=== PATIENT | female | born 1980 | race Caucasian/White ===

== ENCOUNTER 2017-01-01 16:09 | Emergency (ER) | payer BC ==
[~2017-01-01] VITALS: Ht 172.7 cm; Wt 89.8 kg
--- NOTE | 2017-01-01 16:29 | PHYS DOC ---
Past Medical History Past Medical History: Diabetes-Type II Alcohol Use: None Drug Use: None Adult General Chief Complaint Chief Complaint: anxiety HPI HPI Patient is a 36 year old female who presents with while at work sudden onset moderate severity of crying, hyperventilation, feeling short of breath, near syncope, dizziness. Denies chest pain. No fever. Denies prior psychiatric history. Reports being under stress that she is engaged. Review of Systems Review of Systems Constitutional: Denies fever or chills [] Eyes: Denies change in visual acuity, redness, or eye pain [] HENT: Denies nasal congestion or sore throat [] Respiratory: Denies cough or shortness of breath [] Cardiovascular: No additional information not addressed in HPI [] GI: Denies abdominal pain, nausea, vomiting, bloody stools or diarrhea [] : Denies dysuria or hematuria [] Musculoskeletal: Denies back pain or joint pain [] Integument: Denies rash or skin lesions [] Neurologic: Denies headache, focal weakness or sensory changes [] Endocrine: Denies polyuria or polydipsia [] Current Medications Current Medications Current Medications Medications (Trade) Dose Ordered Sig/Gillian Start Time Stop Time Status Last Admin Dose Admin Lorazepam (Ativan) 1 mg 1X ONCE 01/01/17 16:30 01/01/17 16:31 DC 01/01/17 17:01 1 MG Sodium Chloride 1,000 ml @ 1,000 mls/hr 1X ONCE 01/01/17 16:30 01/01/17 17:29 DC 01/01/17 17:01 1,000 MLS/HR Allergies Allergies Allergies Coded Allergies Type Severity Reaction Last Updated Verified No Known Drug Allergies 01/01/17 No Physical Exam Physical Exam Constitutional: Well developed, well nourished, moderate acute distress, non- toxic appearance. [] HENT: Normocephalic, atraumatic, bilateral external ears normal, oropharynx moist, no oral exudates, nose normal. [] Eyes: PERRLA, EOMI, conjunctiva normal, no discharge. [] Neck: Normal range of motion, no tenderness, supple, no stridor. [] Cardiovascular:Heart rate regular rhythm, no murmur [] Lungs & Thorax: Bilateral breath sounds clear to auscultation [] Abdomen: Bowel sounds normal, soft, no tenderness, no masses, no pulsatile masses. [] Skin: Warm, dry, no erythema, no rash. [] Back: No tenderness, no CVA tenderness. [] Extremities: No tenderness, no cyanosis, no clubbing, ROM intact, no edema. [] Neurologic: Alert and oriented X 3, normal motor function, normal sensory function, no focal deficits noted. [] Psychologic: Affect normal, judgement normal, emotionally labile crying hysterically hyperventilating. Denies SI or HI. Denies hallucinations.[] Current Patient Data Vital Signs Vital Signs Date Time Temp Pulse Resp B/P (MAP) Pulse Ox O2 Delivery O2 Flow Rate FiO2 01/01/17 19:13 102 18 115/75 (88) 99 Room Air 01/01/17 16:09 98.0 98.0 Lab Values Laboratory Tests Test 01/01/17 16:20 01/01/17 16:47 D-Dimer (Sarah) < 0.27 ug/mlFEU POC Hemoglobin 14.3 g/dL (12-15) POC Hematocrit 42 % (36-40) H POC Sodium 136 mmol/L (135-145) POC Potassium 4.4 mmol/L (3.5-5.0) POC Chloride 103 mmol/L (98-110) POC Total CO2 21 mmol/L (23-32) L Anion Gap 18 mmol/L (6-14) H POC Blood Urea Nitrogen 16 mg/dL (8-26) POC Creatinine 0.7 mg/dL (0.5-1.4) Glucose Level 217 mg/dL (70-99) H POC Ionized Calcium ([place]) 1.07 mmol/L (1.13-1.32) L Laboratory Tests 01/01/17 16:47 EKG EKG EKG sinus tachycardia rate of 113 no STEMI QTC normal interpreted by me[] Radiology/Procedures Radiology/Procedures Chest x-ray negative per radiology report and my review[] Course & Med Decision Making Course & Med Decision Making Pertinent Labs and Imaging studies reviewed. (See chart for details) 1900 reexam patient is sleeping resting comfortably with a resting pulse rate in the 90s. D-dimer negative and EKG chest x-ray unremarkable. Do not suspect pulmonary embolism at this time. Most likely stress related as she says she is getting soon causing her a lot of anxiety.[] Dragon Disclaimer Dragon Disclaimer This electronic medical record was generated, in whole or in part, using a voice recognition dictation system. Departure Departure Impression: Primary Impression: Panic attack as reaction to stress Additional Impression: Hyperventilation syndrome Disposition: 01 HOME, SELF-CARE Condition: IMPROVED Patient Instructions: Anxiety and Panic Attacks, [id number] Problem Qualifiers LUDA CHRISTINE MD Jan 01, 2017 16:29
[2017-01-01] MEDS ORDERED: IV NORMAL SALINE 1000ML BAG 1,000 ML IV ONE (16:30)
[2017-01-01 16:51] LABS: POTASSIUM ISTAT 4.4 mmol/L (3.5-5.0)
--- NOTE | 2017-01-01 17:16 | EKG ---
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
[2017-01-01 19:13] VITALS: BP 115/75
--- NOTE | 2017-01-02 07:30 | RAD ---
Portable chest, 01/01/2017: History: Shortness of breath The heart size and pulmonary vascularity are normal. The lungs are clear. There is no evidence of pleural fluid. IMPRESSION: No acute cardiopulmonary abnormality is detected.
== END 2017-01-01 19:28 | disposition home or self-care (01) ==
LOC: ER 16:09
DX: F45.8 Other somatoform disorders (principal); F41.0 Panic disorder [episodic paroxysmal anxiety]; F43.0 Acute stress reaction; E11.9 Type 2 diabetes mellitus without complications
CPT/HCPCS: 36415; 71010; 80047; 85379; 93005; 96361; 96374; 99285; J2060; J7030